=== PATIENT | male | born 1935 | race Caucasian/White ===

== ENCOUNTER → 2017-10-01 | Outpatient (CLI) | payer OTHER | LOC: FIMAGING 11:45 | PROVIDERS: ATTEND Orthopaedic Surgery | DX: Z01.818 Encounter for other preprocedural examination (principal); M17.11 Unilateral primary osteoarthritis, right knee ==

== ENCOUNTER 2017-10-29 07:10 | Observation (INO) | payer OTHER ==
--- NOTE | 2017-10-29 06:25 | PDHPUP ---
History & Physical Update H&P update statement: This history and physical update is based on an assessment of the patient which was completed after admission or registration (within 24 hours), but prior to the surgery/procedure. H&P update: H&P reviewed & patient examined, no change in patient's condition since H&P completed
[~2017-10-29 07:10] MED LIST: ROPIVACAINE 0.2% 80 MG, EPINEPHrine 0.2 MG, KETOROLAC TROMETHAMINE 30 MG in SYRINGE 0 ML IU ONE; TRANEXAMIC ACID 3,000 MG in NS (SYRINGE) 50 ML IRR ONE
[2017-10-29] MEDS ORDERED: ACETAMINOPHEN 325 MG TAB PO ONE (07:27)
[2017-10-29] MEDS ORDERED: FAMOTIDINE 20 MG TAB PO ONE (07:27)
[2017-10-29] MEDS ORDERED: DEXAMETHASONE 4 MG/ML VIAL IVP ONE (07:27)
[2017-10-29] MEDS ORDERED: ceFAZolin 2 GM/DEXTROSE 100 ML IV ONE (07:27)
[2017-10-29] MEDS ORDERED: LR 1,000 ML IV ONE (07:28)
[2017-10-29] MEDS ORDERED: TRANEXAMIC ACID 3,000 MG/50 ML BAG IRR ONE (07:39)
[2017-10-29] MEDS ORDERED: VANCOMYCIN 1 GM VIAL ONE (07:39)
--- NOTE | 2017-10-29 08:59 | PDANEPAE ---
ANE History of Present Illness 82 year old for Right TKA ANE Past Medical History - Cardiovascular History Hx Hypertension: Yes Hx Arrhythmias: No Hx Chest Pain: No Hx Coronary Artery / Peripheral Vascular Disease: No Hx CHF / Valvular Disease: No Hx Palpitations: No - Pulmonary History Hx COPD: No Hx Asthma/Reactive Airway Disease: No Hx Recent Upper Respiratory Infection: No Hx Oxygen in Use at Home: No Hx Sleep Apnea: No Sleep Apnea Screening Result - Last Documented: Positive - Neurologic History Hx Cerebrovascular Accident: No Hx Seizures: No Hx Dementia: No - Endocrine History Hx Diabetes: No - Renal History Hx Renal Disorders: No Renal History Comment: kidney stones - Liver History Hx Hepatic Disorders: No - Neurological & Psychiatric Hx Hx Neurological and Psychiatric Disorders: No - Cancer History Hx Cancer: No - Congenital Disorder History Hx Congenital Disorders: No - GI History Hx Gastrointestinal Disorders: Yes Gastrointestinal History Comment: gerd - Other Health History Other Health History: Pt is very [place] - Chronic Pain History Chronic Pain: No - Surgical History Prior Surgeries: kidney stone removal. none in last 5 yrs ANE Review of Systems Review of systems is: negative Review of Systems: - Exercise capacity METS (RN): 4 METS ANE Patient History - Allergies Allergies/Adverse Reactions: No Known Allergies Allergy (Verified 09/22/17 11:34) - Home Medications Home Medications: Aspirin [Aspirin 325 mg (*)] 325 - 650 mg PO DAILY PRN 09/22/17 [Last Taken ] Aspirin [Aspirin 81mg (*)] 81 mg PO DAILY 09/22/17 [Last Taken 10/22/17] Calcium Carbonate [Oyster Shell Calcium 500 mg (*)] 500 mg PO DAILY 09/22/17 [ Last Taken 10/27/17] Diclofenac Sodium [Pennsaid] 1 pratima TP BID 09/22/17 [Last Taken 10/22/17] Losartan Potassium [Cozaar 50 mg (*)] 50 mg PO DAILY 09/22/17 [Last Taken ] Meloxicam 15 mg PO DAILY 09/22/17 [Last Taken 10/22/17] Omeprazole 40 mg PO Q2D@18 09/22/17 [Last Taken 10/29/17] Simvastatin [Zocor] 20 mg PO DAILY18 09/22/17 [Last Taken 10/28/17] celeCOXIB [Celebrex] 10/29/17 [Last Taken 10/28/17] - NPO status NPO Since - Liquids (Date): 10/29/17 NPO Since - Liquids (Time): 06:00 NPO Since - Solids (Date): 10/28/17 NPO Since - Solids (Time): 16:30 - Smoking Hx Smoking Status: Never smoked - Family Anes Hx Family Hx Anesthesia Complications: none ANE Labs/Vital Signs - Vital Signs Blood Pressure: 156/95 Heart Rate: 78 Respiratory Rate: 16 O2 Sat (%): 91 Height: 190.5 cm Weight: 99.79 kg ANE Physical Exam - Airway Neck exam: FROM Mallampati Score: Class 2 Mouth exam: normal dental/mouth exam - Pulmonary Pulmonary: no respiratory distress - Cardiovascular Cardiovascular: regular rate and rhythym - ASA Status ASA Status: II ANE Anesthesia Plan Anesthesia Plan: spinal Regional Anesthesia: adductor canal FNB
[2017-10-29] MEDS ORDERED: PROPOFOL/EMULSION 500 MG/50 ML BOTTLE IV ONE (09:06)
[2017-10-29] MEDS ORDERED: fentaNYL 100 MCG/2 ML INJ ONE (09:06)
[2017-10-29] MEDS ORDERED: NALOXONE HCL 0.4 MG/ML INJ IVP PRN (10:15)
[2017-10-29] MEDS ORDERED: fentaNYL 100 MCG/2 ML INJ IVP PRN (10:15)
[2017-10-29] MEDS ORDERED: HYDROmorphONE/DILAUDID 2 MG/ML INJ IVP PRN (10:15)
[2017-10-29] MEDS ORDERED: PROMETHAZINE HCL 25 MG/ML INJ IVP PRN ×2 (10:15→10:26)
[2017-10-29] MEDS ORDERED: ONDANSETRON 4 MG/2 ML VIAL IVP PRN ×2 (10:15→10:26)
[2017-10-29] MEDS ORDERED: POLYETHYLENE GLYCOL 3350 17 GM PKT PO PRN (10:26)
[2017-10-29] MEDS ORDERED: MAGNESIUM HYDROXIDE 30 ML UDCUP PO PRN (10:26)
[2017-10-29] MEDS ORDERED: METOCLOPRAMIDE 10 MG/2 ML VIAL IVP PRN (10:26)
[2017-10-29] MEDS ORDERED: DIPHENOXYLATE/ATROPINE LOMOTIL 1 TAB PO PRN (10:26)
[2017-10-29] MEDS ORDERED: diphenhydrAMINE 25 MG CAP PO PRN (10:26)
[2017-10-29] MEDS ORDERED: CYCLOBENZAPRINE 10 MG TAB PO PRN (10:26)
[2017-10-29] MEDS ORDERED: oxyCODONE IR 5 MG TAB PO PRN (10:26)
[2017-10-29] MEDS ORDERED: BISACODYL 10 MG SUPP PR PRN (10:26)
[2017-10-29] MEDS ORDERED: TEMAZEPAM 15 MG CAP PO PRN (10:26)
[2017-10-29] MEDS ORDERED: PROMETHAZINE HCL 25 MG SUPPR PR PRN (10:26)
[2017-10-29] MEDS ORDERED: LACTULOSE 20 GM/30 ML UDCUP PO PRN (10:26)
[2017-10-29] MEDS ORDERED: ONDANSETRON DISINTEGRATING 4 MG TAB PO PRN (10:26)
--- NOTE | 2017-10-29 10:26 | POSTOPPROG ---
Post Op Note Date of Operation: 10/29/17 Surgeon: Geno Mac Assessor: juani mac Anesthesiologist: dr. vaughn Anesthesia: Spinal, Other (Specify) (adductor canal block) Pre-op Diagnosis: right knee OA Post-op Diagnosis: same Indication: right knee pain Procedure: R med MPL robot assisted Findings: severe knee OA, medial compartment Inf/Abcess present in the surg proc area at time of surgery?: No EBL: 50-100
[2017-10-29] MEDS ORDERED: LR 1,000 ML IV SCH (10:30)
--- NOTE | 2017-10-29 10:40 | POSTANESTH ---
Post Anesthetic Evaluation Cardiovascular Status: Normal, Stable, Tx Over/Under Hydration Level of Consciousness/Mental Status: Can Participate in Eval, Alert and Oriented Pain Control: Adequate, Prn Tx Ordered Nausea/Vomiting Control: Adequate, Prn Tx Ordered Complications Possibly Related to Anesthesia: None Noted
[2017-10-29] MEDS: ACETAMINOPHEN 325 MG TAB PO SCH ×3 (12:01→23:46)
[2017-10-29] MEDS: ceFAZolin 2 GM/DEXTROSE 100 ML IV SCH (17:08)
[2017-10-29] MEDS ORDERED: ATORVASTATIN CALCIUM 10 MG TAB PO SCH (18:00)
[2017-10-29] MEDS ORDERED: PANTOPRAZOLE SODIUM 40 MG TAB PO SCH (18:00)
[2017-10-29] MEDS: SENNOSIDES/DOCUSATE SODIUM TAB PO SCH (20:14)
[2017-10-29] MEDS: ASPIRIN 81 MG CHEWABLE TAB PO SCH (20:14)
[2017-10-29] MEDS ORDERED: FAMOTIDINE 20 MG TAB PO SCH (21:00)
[2017-10-30] MEDS: ceFAZolin 2 GM/DEXTROSE 100 ML IV SCH (01:47)
[2017-10-30] MEDS: ACETAMINOPHEN 325 MG TAB PO SCH (05:58)
[2017-10-30 08:03] VITALS: BP 143/92
[2017-10-30] MEDS ORDERED: LOSARTAN POTASSIUM 50 MG TAB PO SCH (09:00)
[2017-10-30] MEDS: ASPIRIN 81 MG CHEWABLE TAB PO SCH (09:01)
[2017-10-30] MEDS: SENNOSIDES/DOCUSATE SODIUM TAB PO SCH (09:01)
--- NOTE | 2017-10-30 10:12 | SOAPPROG ---
SOAP Progress Note Assessment/Plan: Assessment: Patient is doing well POD 1 s/p Right med MPL pain is well controlled VTE ppx: recommend aspirin 81 mg BID for 4 weeks D/c planning: dc to home today. Plan: 10/30/17 10:12 Subjective: patient is doing well, denies SOB, chest pain and N/v Objective: Vital Signs Temp Pulse Resp BP Pulse Ox 36.6 C 68 18 143/92 H 90 L 10/30/17 08:00 10/30/17 08:00 10/30/17 08:00 10/30/17 09:00 10/30/17 08:00 Laboratory Results 10/30/17 04:45 10/30/17 04:45 10/29/17 10/30/17 10/31/17 05:59 05:59 05:59 Intake Total 2420 450 Output Total 750 Balance 1670 450 RLE: incision dressing is clean and dry, NVI, +pf/df ICD10 Worksheet Patient Problems: Problems Problem Status Onset Primary localized osteoarthritis of right knee Acute
--- NOTE | 2017-10-30 13:21 | GOP ---
DATE OF OPERATION: 10/29/2017 SURGEON: Hortensia Collazo MD CHANNEL PARTNERS: Veena Collazo, CORY ANESTHESIA: Spinal. PREOPERATIVE DIAGNOSIS: Right knee osteoarthritis. POSTOPERATIVE DIAGNOSIS: Right knee osteoarthritis. PROCEDURE PERFORMED: Right medial compartment with partial knee replacement and computer navigation FINDINGS: ESTIMATED BLOOD LOSS: 30 cc. INDICATIONS: This is an 82-year-old male with progressive pain of the right knee unresponsive to con servative care. Risks and benefits of surgical intervention were explained in detail. DESCRIPTION OF PROCEDURE: The patient was brought to the operating room and placed on the table in s upine position. Spinal anesthesia was induced without difficulty. A pneumatic tourniquet was applie d about the right proximal thigh and the leg was prepped and draped in sterile fashion. Attention wa s turned first to the distal aspect of the right femur. At 3 cm proximal to the lateral rise of the femur, 2 percutaneous half pins were placed for fixation of the femoral array. In a similar fashion, 2 pins were placed anterolateral on the tibia for fixation of the tibial array. External land jailene ng and registration of the hip center was performed without difficulty. After exsanguination by elevation, the tourniquet was inflated to 250 mmHg. Incision was made from the tibial tuberosity to the superior pole of the patella. Dissection was car ried out through the subcutaneous tissue to the deep fascia using Bovie electrocautery for hemostasis . Medial parapatellar arthrotomy was carried out to the superior pole of the patella. The medial co llateral ligament was elevated and the infrapatellar fat pad was resected. Internal femoral and tibi al registration was carried out without difficulty and the femoral and tibial checkpoints were placed and verified for accuracy. Attention was turned to the femur. The foot print for the size 6 femoral component was cut with the 6 mm bur using the [employer] robotic system and verified for accuracy against the CT based plan. The hole was cut for the femoral post. In a similar fashion, the 6 mm bur was used to cut the foot print for t he size 5 tibial component using the [employer] system and verified for accuracy against the CT based plan. Attention was turned to the posterior aspect of the knee and remnants of the medial meniscus were exc ised. The posterior capsule was injected with ropivacaine, epinephrine and Toradol. Trial reduction was carried out and there was excellent range of motion, alignment and stability using the size 6 fe moral component and the size 5 tibial component, 5 x 8 mm polyethylene. All trials were then removed. The joint was thoroughly irrigated and carefully dried. One package o f cement and 1 gram of vancomycin were mixed in the vacuum mixer and placed on the fixation surfaces of all components. The components were implanted and all excess cement was thoroughly removed. Impla nt placement was verified against the CT view plan and found to be excellent. The tourniquet was deflated and all bleeders were coagulated. The wound was thoroughly irrigated and closed using interrupted sutures of 2-0 Vicryl for the joint capsule. The subcu was closed with 3-0 Vicryl and the skin with 4-0 Monocryl. Dermabond and Steri-Strips were applied, followed by a compr essive dressing. The patient was then moved from the operating room to the recovery room in good con dition, having tolerated the procedure well. CASE CLASSIFICATION: Clean. /[id number]/MODL
== END 2017-10-30 12:12 | disposition home or self-care (01) ==
LOC: F3N 07:10
PROVIDERS: ADMIT Orthopaedic Surgery; ATTEND Orthopaedic Surgery
PROC: 0SRC0J9 Replacement of Right Knee Joint with Synthetic Substitute, Cemented, Open Approach (ICD-10-PCS; principal; 2017-10-29 09:00)
PROC: 8E0Y3CZ Robotic Assisted Procedure of Lower Extremity, Percutaneous Approach (ICD-10-PCS; principal; 2017-10-29 09:00)
DX: M17.11 Unilateral primary osteoarthritis, right knee (principal)
CPT/HCPCS: 27446; 73560; 97110; 97116; 97161; C1713; C1776; G8978; G8979; G8980; J0171; J0690; J1100; J1885; J2704; J2795; J3010; J3370